=== PATIENT | male | born 1995 | race Hispanic/Latino ===

== ENCOUNTER 2019-10-17 21:51 | Emergency (ER) | payer SELFPAY ==
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
[2019-10-17] MEDS ORDERED: TETANUS,DIPHTHERIA,PERTUSSIS 1 EA SYG IM ONE (22:05)
[2019-10-17] MEDS ORDERED: MORPHINE SULFATE INJ 10 MG/ML VIAL IV ONE (22:31)
[2019-10-17] MEDS ORDERED: ONDANSETRON INJ 4 MG/2 ML VIAL IV ONE (22:32)
[2019-10-17] MEDS ORDERED: methylPREDNISolone SODIUM SUC 125 MG/2 ML VIAL ONE (22:42)
[2019-10-17] MEDS ORDERED: methylPREDNISolone SODIUM SUC 125 MG/2 ML VIAL IV ONE (22:42)
== END 2019-10-17 22:50 | disposition short-term general hospital (02) ==
LOC: ER 21:51
DX: M54.2 Cervicalgia (principal); M54.5 Low back pain; R20.0 Anesthesia of skin; V48.1XXA Car passenger injured in noncollision transport accident in nontraffic accident, initial encounter; Y92.410 Unspecified street and highway as the place of occurrence of the external cause
CPT/HCPCS: 80053; 80320; 85025; 90471; 90715; J2270; J2405; J2930